=== PATIENT | male | born 1950 | race Caucasian/White ===

== ENCOUNTER → 2017-12-23 | Outpatient (CLI) | payer MEDICARE, OTHER ==
[~2017-12-23] MED LIST: ACYCLOVIR 400400 MG PO; AMITRIPTYLINE H25 M2 PO; LIPITOR 20 MG T20 M1 PO; XALATAN2.5 ML OPHTHALMIC
--- NOTE | 2018-01-02 00:54 | ONC ---
[place] [address] RADIATION ONCOLOGY NOTE Name: LESLIE TRINIDAD Room: [facility]#: [id number] Admission: 12/23/17 Attend Phys: Vic Giraldo MD Discharge: Date of : 52 Report #: [id number] THIS REPORT FOR: //name// CC: Vic Horan MD REFERRING PHYSICIANS: Mague Guerrero MD; Ghanshyam Zuleta MD and Shantal Horan MD [facility] phone is [phone]. PRIMARY SITE AND HISTOPATHOLOGY: The patient received chemoradiotherapy for a stage III, T2 N1a M0, left buccal mucosal cancer and the patient's radiation therapy was completed on 05/26/2016. INTERVAL NOTE: The patient is eating well. He is eating foods such as steaks, ham, mashed potatoes. He indicated that he had an electromyelogram for neuropathy symptoms in the left arm, though he feels like that his symptoms are pretty minimal at this time. MEDICATIONS: Atorvastatin and amitriptyline. He had been prescribed PreviDent gel, but he has not been completely compliant with using it. 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 Cigarettes: He smoked cigars off and on for about 20 years. He quit smoking around 2005. REVIEW OF SYSTEMS: RESPIRATORY: The patient was not short of breath. MUSCULOSKELETAL: He had good range of motion in his upper extremities. PHYSICAL EXAMINATION: VITAL SIGNS: The patient weighed 150.8 pounds on 12/23/2017. He was 142.8 pounds on 06/17/2017. On 12/23/2017, blood pressure was 133/80, pulse 77, respirations 20, oxygen saturation 100%. LYMPH NODES: He had no palpable cervical or supraclavicular lymphadenopathy. HEAD, EYES, EARS, NOSE AND THROAT: Mouth had no suspicious visible lesions or suspicious palpable lesions. His dentition appeared in good condition. HEART: Had a regular rate and rhythm without murmur. LUNGS: were clear to auscultation. LABORATORY DATA: From 12/16/2017: Hemoglobin was 13.1; platelets were 172,000; white blood cell count was 6.8. Sodium was 135, potassium was 4.2, BUN 15, creatinine 1.13. TSH was 2.50. RADIOLOGIC DATA: From 09/14/2017 revealed post-therapeutic [place] [address] RADIATION ONCOLOGY NOTE Name: LESLIE TRINIDAD Room: [facility]#: [id number] Admission: 12/23/17 Attend Phys: Vic Giraldo MD Discharge: Date of : 52 Report #: [id number] No evidence of thoracic metastatic disease. Extensive calcified coronary artery disease. ASSESSMENT: 1. History of head and neck cancer- There is no evidence of head and neck cancer at this time. The patient is scheduled to have lab work and a CT scan of the neck and chest by his medical oncologist, Dr. Horan, on 03/12/2018. He has an appointment with Dr. Horan on 03/16/2018. I gave the patient a requisition for a complete blood count, basic metabolic panel, TSH level in 07/2018. He was asked to schedule a follow up appointment to see me afterwards. 2. Dental care- The patient indicated that he had plenty of 1.1% PreviDent fluoride at home. He was encouraged to use it and followup regularly with his dentist. 3. Calcified coronary artery disease- The patient will be referred to his primary care physician, Dr. Guerrero, to manage this issue. 4. Hyperlipidemia- The patient takes atorvastatin and that is managed by his referring physicians. Thank you for allowing me to participate in the care of this patient. <ELECTRONICALLY SIGNED> By: Vic Giraldo MD 01/02/18 0054 1120 0023Dtwan Giraldo MD /nt
== END ==
LOC: M.RTH 04:01
DX: Z08 Encounter for follow-up examination after completed treatment for malignant neoplasm (principal); I25.10 Atherosclerotic heart disease of native coronary artery without angina pectoris; E78.5 Hyperlipidemia, unspecified

== ENCOUNTER → 2018-07-21 | Outpatient (CLI) | payer MEDICARE, OTHER ==
--- NOTE | 2018-07-26 14:42 | ONC ---
[address] [address] RADIATION ONCOLOGY NOTE Name: LESLIE TRINIDAD Room: [facility]#: [id number] Admission: 07/21/18 Attend Phys: Vic Giraldo MD Discharge: Date of : 52 Report #: [id number] THIS REPORT FOR: //name// CC: Vic Sawyer DATE OF SERVICE: 07/21/2018 REFERRING PHYSICIANS: Mague Guerrero MD; Shantal Horan MD; Ghanshyam Zuleta MD and Dr. Sawyer. [facility] phone is [phone]. PRIMARY SITE AND HISTOPATHOLOGY: The patient received chemoradiotherapy for a stage III, X9T1dY2, left buccal mucosal cancer. The patient's radiation therapy was completed on 05/26/2016. INTERVAL NOTE: The patient indicated that he had a neck CT around 06/23/2018, which revealed some prominence in the left buccal mucosa and that that was biopsied. The biopsy revealed benign findings. 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 That area is very sensitive for the patient, though overall he is eating well and he does use his fluoride gel. MEDICATIONS: Atorvastatin, amitriptyline. He is completing an antibiotic. He takes Advil as needed for pain control. 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 Cigarettes: he smoked cigars off and on for about 20 years. He quit smoking around 2005. REVIEW OF SYSTEMS: RESPIRATORY: The patient was not short of breath. MUSCULOSKELETAL: He had good range of motion of his upper extremities. PHYSICAL EXAMINATION: VITAL SIGNS: The patient weighed 152.4 pounds on 07/21/2018, 150.8 pounds on 12/23/2017. On 07/21/2018 blood pressure was 118/82, pulse 78, respirations 18, oxygen saturation 97%. LYMPH NODES: He had no palpable cervical or supraclavicular lymphadenopathy. HEAD, EYES, EARS, NOSE AND THROAT: Mouth had no suspicious visible lesions or suspicious palpable lesions. The area where he had his biopsy has a healing ulcer. HEART: Had a regular rate [place] [address] RADIATION ONCOLOGY NOTE Name: LESLIE TRINIDAD Room: [facility]#: [id number] Admission: 07/21/18 Attend Phys: Vic Giraldo MD Discharge: Date of : 52 Report #: [id number] LUNGS: were clear to auscultation. LABORATORY DATA: From 07/15/2018, hemoglobin was 13, platelets were 188,000, white blood cells were 7.0. Sodium 138, potassium 3.9, BUN was 18, creatinine 1.16. TSH was 3.28. The patient had a neck CT performed on 06/23/2018, which revealed focal thickening, prominence of the left buccal mucosa, lower buccal mucosa, which could be post radiation changes, but recurrent residual neoplastic disease could not be excluded. He had a focal radiolucency of the left mandibular molar extraction area. The cavity, which had progressed compared to 02/05/2016 could be radiation-induced osteonecrosis. He had a biopsy of the noted area of the left buccal mucosa by the oral surgeon, Dr. Sawyer, that was sent to [facility] for pathologic evaluation on 06/24/2018. The pathology revealed focal and granulation tissue with fibrosis and some hyperkeratosis with ulcer and atypia, with no obvious malignancy, and the patient had been put on antibiotics. ASSESSMENT AND PLAN: 1. History of head and neck cancer- There is no obvious evidence of head and neck cancer at this time. The patient is scheduled to see his medical oncologist, Dr. Horan, on 09/29/2018. Prior to that time he is scheduled for a neck and chest CT on 09/27/2018 and has lab work scheduled for 09/29/2018. I will give the patient a requisition for lab work in about 4-6 months and I asked the patient to schedule a follow up appointment with me afterwards. 2. Ulcer, where the patient had a biopsy with possible osteonecrosis- The patient will be referred to [facility] to be assessed for possible hyperbaric oxygen therapy for this area. 3. Dental care- The patient was given a prescription for both PreviDent gel and PreviDent paste for sensitive teeth. 4. Hyperlipidemia- The patient takes atorvastatin and that is managed by his referring physicians. Thank you for allowing me to participate in the care of this patient. <ELECTRONICALLY SIGNED> By: Vic Giraldo MD 07/26/18 1442 1105 [id number] Giraldo MD /nt
== END ==
LOC: M.RTH 09:30
DX: E78.5 Hyperlipidemia, unspecified (principal); L98.499 Non-pressure chronic ulcer of skin of other sites with unspecified severity; Z85.89 Personal history of malignant neoplasm of other organs and systems

== ENCOUNTER → 2018-07-29 | Outpatient (CLI) | payer MEDICARE, OTHER | LOC: M.WC 10:00 | DX: M27.2 Inflammatory conditions of jaws (principal); L59.8 Other specified disorders of the skin and subcutaneous tissue related to radiation; Z87.891 Personal history of nicotine dependence; Z85.89 Personal history of malignant neoplasm of other organs and systems; Y84.2 Radiological procedure and radiotherapy as the cause of abnormal reaction of the patient, or of later complication, without mention of misadventure at the time of the procedure ==

== ENCOUNTER → 2018-08-03 | Outpatient (CLI) | payer MEDICARE, OTHER | LOC: M.WC 08:00 | DX: M27.2 Inflammatory conditions of jaws (principal); L59.8 Other specified disorders of the skin and subcutaneous tissue related to radiation; H91.90 Unspecified hearing loss, unspecified ear; Z87.891 Personal history of nicotine dependence; Z85.89 Personal history of malignant neoplasm of other organs and systems; Y84.2 Radiological procedure and radiotherapy as the cause of abnormal reaction of the patient, or of later complication, without mention of misadventure at the time of the procedure ==

== ENCOUNTER → 2018-08-13 | Outpatient (CLI) | payer MEDICARE, OTHER | LOC: M.WC 09:43 | DX: M27.2 Inflammatory conditions of jaws (principal); L59.8 Other specified disorders of the skin and subcutaneous tissue related to radiation; H91.90 Unspecified hearing loss, unspecified ear; Z87.891 Personal history of nicotine dependence; Z85.89 Personal history of malignant neoplasm of other organs and systems; Z85.818 Personal history of malignant neoplasm of other sites of lip, oral cavity, and pharynx; Y84.2 Radiological procedure and radiotherapy as the cause of abnormal reaction of the patient, or of later complication, without mention of misadventure at the time of the procedure ==

== ENCOUNTER → 2018-09-10 | Outpatient (CLI) | payer MEDICARE, OTHER | LOC: M.WC 09:30 | DX: M27.8 Other specified diseases of jaws (principal); L59.8 Other specified disorders of the skin and subcutaneous tissue related to radiation; H91.90 Unspecified hearing loss, unspecified ear; Z87.891 Personal history of nicotine dependence; Z85.89 Personal history of malignant neoplasm of other organs and systems; Y84.2 Radiological procedure and radiotherapy as the cause of abnormal reaction of the patient, or of later complication, without mention of misadventure at the time of the procedure ==

== ENCOUNTER → 2018-09-23 | Outpatient (CLI) | payer MEDICARE, OTHER | LOC: M.WC 04:45 | DX: M27.2 Inflammatory conditions of jaws (principal); L59.8 Other specified disorders of the skin and subcutaneous tissue related to radiation; H91.90 Unspecified hearing loss, unspecified ear; Z87.891 Personal history of nicotine dependence; Z85.89 Personal history of malignant neoplasm of other organs and systems; Y84.2 Radiological procedure and radiotherapy as the cause of abnormal reaction of the patient, or of later complication, without mention of misadventure at the time of the procedure ==

== ENCOUNTER → 2018-10-22 | Outpatient (CLI) | payer MEDICARE, OTHER | LOC: M.WC 07:00 | DX: M27.2 Inflammatory conditions of jaws (principal); L59.8 Other specified disorders of the skin and subcutaneous tissue related to radiation; H40.9 Unspecified glaucoma; H91.90 Unspecified hearing loss, unspecified ear; Z87.891 Personal history of nicotine dependence; Z85.89 Personal history of malignant neoplasm of other organs and systems; Y84.2 Radiological procedure and radiotherapy as the cause of abnormal reaction of the patient, or of later complication, without mention of misadventure at the time of the procedure ==

== ENCOUNTER → 2019-01-28 | Outpatient (CLI) | payer MEDICARE, OTHER ==
--- NOTE | 2019-01-31 01:03 | ONC ---
[place] [address] RADIATION ONCOLOGY NOTE Name: LESLIE TRINIDAD Room: [facility]#: [id number] Admission: 01/28/19 Attend Phys: Vic Giraldo MD Discharge: Date of : 52 Report #: [id number] THIS REPORT FOR: //name// CC: Vic Sawyer MD DATE OF SERVICE: 01/28/2019 RADIATION ONCOLOGY FOLLOWUP NOTE REFERRING PHYSICIANS: Mague Guerrero MD., Shantal Horan MD., Bronson Hirsch MD., and Joseph Sawyer MD. [facility] phone is [phone]. PRIMARY SITE AND HISTOPATHOLOGY: The patient received chemoradiotherapy for a stage III, T2 N1a M0, left buccal mucosal cancer. The patient's radiation therapy was completed on 05/26/2016. INTERVAL NOTE: The patient had hyperbaric oxygen treatments for a nonhealing ulcer on the left mandible. He also had a CT scan of the neck on 01/12/2019 which revealed no evidence of any residual or recurrent mass or cervical lymphadenopathy, but there was a focal linear gas density along the lateral left mandibular body, which was probably corresponding to the area of exposed bone. Clinically, there was no aggressive osteolysis. The patient ended up seeing the ear, nose, throat physician, Dr. Hirsch on 12/22/2018 and he believed the patient had osteonecrosis of the left mandible and scheduled him for surgery on 02/15/2019. The patient indicated that he had wisdom teeth extracted in that area in the past. He also had a biopsy of an area there on 06/24/2018 by the oral surgeon, Dr. Sawyer that revealed benign findings, so ultimately a nonhealing area developed. He tends to eat food on the right side since he does have pain when eating on the left side of his mouth. He has not been totally compliant with using his fluoride gel at this time. MEDICATIONS: Atorvastatin, amitriptyline, Advil as needed and Augmentin x 10 days. 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 Cigarettes, he smoked cigars off and on for about 20 years. He quit smoking around 2005. REVIEW OF SYSTEMS: RESPIRATORY: The patient was not short of breath. MUSCULOSKELETAL: He has good range of motion [place] [address] RADIATION ONCOLOGY NOTE Name: LESLIE TRINIDAD Room: [facility]#: [id number] Admission: 01/28/19 Attend Phys: Vic Giraldo MD Discharge: Date of : 52 Report #: [id number] PHYSICAL EXAMINATION: VITAL SIGNS: The patient weighed 147 pounds on 01/28/2019, 152.4 pounds on 07/21/2018. On 01/28/2019, blood pressure was 113/75, pulse 82, respirations 20, oxygen saturation 98%. LYMPH NODES: He had no palpable cervical or supraclavicular lymphadenopathy. HEAD, EYES, EARS, NOSE AND THROAT: Mouth had no suspicious visible lesions or suspicious palpable lesions. He did have a nonhealing area around the left mandible near the posterior molars on the buccal side. HEART: Had a regular rate and rhythm without murmur. LUNGS: were clear to auscultation. LABORATORY DATA: From 01/14/2019, hemoglobin was 13.0, platelets 189,000, white blood cells 7.0. Sodium 136, potassium 3.5, BUN 13, creatinine 1.10 and TSH was 3.3. ASSESSMENT AND PLAN: 1. History of head and neck cancer- There is no obvious head and neck cancer at this time. The patient was given a requisition for lab work around 05/2019 or 06/2019. He was asked to schedule a followup appointment to see me afterwards. 2. 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 Hirsch on 02/15/2019. Lab work was ordered in 05/2019 or 06/2019. The patient was asked to schedule a followup appointment to see me afterwards. He also has an appointment with his medical oncologist, Dr. Hroan on 04/06/2019. 3. Dental care- The patient was given a prescription for Dentogel and he was told to apply that to his teeth. 4. Hyperlipidemia- The patient takes atorvastatin that is managed by his referring physicians. Thank you for allowing me to participate in the care of this patient. <ELECTRONICALLY SIGNED> By: Vic Giraldo MD 01/31/19 0103 1436 0002Vic Giraldo MD /dixie
== END ==
LOC: M.RTH 05:35
DX: C06.0 Malignant neoplasm of cheek mucosa (principal); E78.5 Hyperlipidemia, unspecified; Z79.899 Other long term (current) drug therapy

== ENCOUNTER → 2019-07-08 | Outpatient (CLI) | payer MEDICARE, OTHER ==
--- NOTE | ~2019-07-08 | ONC ---
[address] [address] RADIATION ONCOLOGY NOTE Name: LESLIE TRINIDAD Room: [facility]#: [id number] Admission: 07/08/19 Attend Phys: Vic Giraldo MD Discharge: Date of : 52 Report #: [id number] THIS REPORT FOR: //name// CC: Vic Guerrero DATE OF SERVICE: 07/08/2019 RADIATION/ONCOLOGY FOLLOWUP NOTE REFERRING PHYSICIANS: Mague Guerrero MD; Shantal Horan MD; Bronson Hirsch MD; Joseph Sawyer MD [facility] phone is [phone]. PRIMARY SITE AND HISTOPATHOLOGY: The patient received chemoradiotherapy for stage 3 T2 N1a M0 left buccal mucosal cancer. The patient's radiation therapy was completed on 05/26/2016. 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 He has been able to eat TV dinners and other soft foods. MEDICATIONS: Include atorvastatin, amitriptyline, Advil as needed. 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 Cigarettes, he smoked cigars off and on for about 20 years. He quit smoking around 2005. REVIEW OF SYSTEMS: RESPIRATORY: The patient was not short of breath. MUSCULOSKELETAL: He had good range of motion of his upper extremities. PHYSICAL EXAMINATION: VITAL SIGNS: The patient weighed 147.4 pounds on 07/08/2019 and 147 pounds on 01/28/2019. On 07/08/2019, blood pressure is 105/68, pulse 78, respirations 18, oxygen saturation 98%. LYMPH NODES: The patient had no palpable cervical or supraclavicular lymphadenopathy. HEAD, EYES, EARS, NOSE AND THROAT: Mouth had no suspicious visible lesions or suspicious palpable lesions. The area where he had the operation looks well healed. HEART: Had a regular rate and rhythm without murmur. LUNGS: Clear to auscultation. LABORATORY DATA: From 06/20/2019, hemoglobin 13, platelets 201,000, [place] [address] RADIATION ONCOLOGY NOTE Name: LESLIE TRINIDAD Room: [facility]#: [id number] Admission: 07/08/19 Attend Phys: Vic Giraldo MD Discharge: Date of : 52 Report #: [id number] cell count was 7.6. Sodium 138, potassium 4.3, BUN was 22, creatinine 1.14 and his TSH was slightly elevated at 6.74 with free T4 of 0.7. RADIOLOGIC DATA: He had a neck and chest CT on 04/04/2019. The chest CT showed no evidence of thoracic metastatic disease and his neck CT revealed the postoperative findings consistent with interval left segmental mandibulectomy with an osteocutaneous flap and hardware reconstruction, which was consistent with a postoperative seroma and saw just post-treatment changes. There was no cervical lymphadenopathy. ASSESSMENT AND PLAN: 1. History of head and neck cancer. There is no evidence of head and neck cancer at this time. The patient is scheduled to see his medical oncologist, Dr. Horan, on 10/06/2019. Dr. Horan ordered lab work as well as a neck and chest CT to be done on 10/04/2019 with a followup on 10/06/2019. 2. Hypothyroidism -- the patient was prescribed 25 mcg of levothyroxine to take per day and a TSH was ordered around 12/2019, the patient was asked to follow up with me afterwards. A complete blood count, basic metabolic panel were also ordered around 12/2019 and the patient was asked to follow up with me afterwards. 3. Dental care. The patient was given a prescription for PreviDent 1.1% fluoride paste to use for dental care. 4. Hyperlipidemia. The patient takes atorvastatin that is managed by his referring physicians. Thank you for allowing me to participate in the care of this patient. By: [id number] [id number] Giraldo MD /dixie
== END ==
LOC: M.RTH 07-01 09:45
DX: Z08 Encounter for follow-up examination after completed treatment for malignant neoplasm (principal); E03.9 Hypothyroidism, unspecified; E78.5 Hyperlipidemia, unspecified; Z85.89 Personal history of malignant neoplasm of other organs and systems

== ENCOUNTER → 2019-12-16 | Outpatient (CLI) | payer MEDICARE, OTHER ==
--- NOTE | 2019-12-20 13:36 | ONC ---
[place] [address] RADIATION ONCOLOGY NOTE Name: LESLIE TRINIDAD Room: [facility]#: [id number] Admission: 12/16/19 Attend Phys: Vic Giraldo MD Discharge: Date of : 52 Report #: [id number] THIS REPORT FOR: //name// CC: Vic Sawyer DATE OF SERVICE: 12/16/2019 RADIATION ONCOLOGY FOLLOWUP NOTE REFERRING PHYSICIANS: Mague Guerrero MD, Shantal Horan MD, Bronson Hirsch MD, and Joseph Sawyer MD. [facility] phone is [phone]. PRIMARY SITE AND HISTOPATHOLOGY: The patient received chemoradiotherapy for a stage III, T2 N1a M0, left buccal mucosal cancer. The patient's radiation therapy was completed on 05/26/2016. 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 He has actually gained weight. He has been eating soft foods like TV dinners. MEDICATIONS: Atorvastatin, amitriptyline, Advil as needed. He also takes 25 mcg of levothyroxine per day as well as PreviDent fluoride paste. He indicated that he has not always been compliant with taking his levothyroxine daily. 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 Cigarettes, he smoked cigars off and on for about 20 years. He quit smoking around 2005. REVIEW OF SYSTEMS: RESPIRATORY: The patient was not short of breath. MUSCULOSKELETAL: He has good range of motion of his upper extremities. PHYSICAL EXAMINATION: VITAL SIGNS: The patient weighed 151.4 pounds on 12/16/2019. He was 147.4 pounds on 07/08/2019. On 12/16/2019, temperature was 97.7 degrees Fahrenheit, blood pressure was 116/72, pulse 74, oxygen saturation 95%, respirations 18. LYMPH NODES: The patient had no palpable cervical or supraclavicular lymphadenopathy. EYES, EARS, NOSE AND THROAT Mouth had no suspicious visible lesions [place] [address] RADIATION ONCOLOGY NOTE Name: LESLIE TRINIDAD Room: [facility]#: [id number] Admission: 12/16/19 Attend Phys: Vic Giraldo MD Discharge: Date of : 52 Report #: [id number] HEART: Had a regular rate and rhythm without murmur. LUNGS: were clear to auscultation. LABORATORY DATA: From 12/09/2019; hemoglobin was 13.3, platelets 153,000, white blood cell count was 5.7. Sodium was 140, potassium was 3.9, BUN was 17 and creatinine was 1.16. TSH was elevated at 5.82 though it was less than what it was on 06/20/2019 when it was 6.74. RADIOLOGIC DATA: The patient had a neck CT on 12/16/2019 and that revealed the evidence of a prior left segmental mandibulectomy. There was no evidence of recurrent mass. They did see a mild lucency at the left anterior mandibular fixation side, which was suspected for loosening in that area of the fixation hardware and there was no cervical lymphadenopathy. ASSESSMENT AND PLAN: 1. History of head and neck cancer- There is no evidence of head and neck cancer at this time. So, the patient has a CT scheduled with his medical oncologist, Dr. Horan on 04/09/2020 and he has an appointment with his medical oncologist on 04/11/2020. I went ahead and ordered a basic metabolic panel and complete blood count in about 6 months and I asked the patient to follow up with me afterwards. 2. Hypothyroidism- The patient's TSH is slightly elevated, though improving with 25 mcg of levothyroxine per day as prescribed for the patient, the TSH is still elevated probably because he is not completely compliant with taking it daily. He said he will try to be more compliant with taking it daily so I kept him on the 25 mcg of levothyroxine per day and gave him a refill and ordered a TSH in about 6 months and I asked the patient to follow up with me afterwards. 3. Hardware loosening around the mandible- The patient was referred to his Ear, Nose and Throat physician, Dr. Hirsch to evaluate that area and manage that issue. 4. Dental care.- The patient was given a refill for PreviDent 1.1% fluoride paste to use for dental care. He applies it with a tooth brush. 5. Hyperlipidemia- The patient takes atorvastatin and is managed by his referring physicians. Again, thank you for allowing me to participate in the care of this patient. <ELECTRONICALLY SIGNED> By: Vic Giraldo MD 12/20/19 1336 1427 1603Dtwan Giraldo MD /nt
== END ==
LOC: M.RTH 05:18
PROVIDERS: ATTEND Radiology Radiation Oncology
DX: Z85.818 Personal history of malignant neoplasm of other sites of lip, oral cavity, and pharynx (principal); Z87.891 Personal history of nicotine dependence; Z79.899 Other long term (current) drug therapy

== ENCOUNTER → 2020-07-27 | Outpatient (CLI) | payer MEDICARE, OTHER ==
--- NOTE | ~2020-07-27 | ONC ---
[place] [address] RADIATION ONCOLOGY NOTE Name: LESLIE TRINIDAD Room: [facility]#: [id number] Admission: 07/27/20 Attend Phys: Vic Giraldo MD Discharge: Date of : 52 Report #: [id number] THIS REPORT FOR: cc: Mague Guerrero MD, Katrina MD ~ Vic iGraldo MD DATE OF SERVICE: 07/27/2020 RADIATION ONCOLOGY FOLLOWUP NOTE REFERRING PHYSICIANS: Mague Guerrero MD; Shantal Horan MD; Bronson Hirsch MD; Dr. Joseph Sawyer. [facility] phone is [phone]. PRIMARY SITE AND HISTOPATHOLOGY: Patient received chemoradiotherapy for stage 3, C3D5vV4 left buccal mucosal cancer. The patient's radiation therapy was completed on 05/26/2016. 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 According to the patient, Dr. Hirsch is going to perform a procedure on some of the screws in that graft, but he delayed it since the patient ended up having what sounds like a shoulder replacement surgery recently, so Dr. Hirsch ordered lab work and a scan and a followup in 10/2020. The patient has been eating soft foods such as TV dinners. MEDICATIONS: Includes atorvastatin; amitriptyline; Advil as needed; 25 mcg of levothyroxine per day, though he says he sometimes forgets to take the levothyroxine; and PreviDent fluoride paste. 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 Cigarettes, he smoked cigars off and on for about 20 years. He quit smoking cigars around 2005. REVIEW OF SYSTEMS: RESPIRATORY: The patient was not short of breath. MUSCULOSKELETAL: He had good range of motion of his upper extremities. PHYSICAL EXAMINATION: VITAL SIGNS: The patient weighed 155.8 pounds on 07/27/2020 and a 157.4 pounds on 12/24/2019. On 07/27/2020, blood pressure is 131/76, pulse 68, respirations 16, temperature 97.6 degrees Fahrenheit. Oxygen saturation was 98% on room air. LYMPH NODES: The patient had no palpable cervical or supraclavicular lymphadenopathy. HEAD, EYES, EARS, NOSE, AND THROAT: Mouth [place] [address] RADIATION ONCOLOGY NOTE Name: LESLIE TRINIDAD Room: [facility]#: [id number] Admission: 07/27/20 Attend Phys: iVc Giraldo MD Discharge: Date of : 52 Report #: [id number] suspicious palpable lesions, though he does have mild lymphedema in the right cheek area. HEART: Had a regular rate and rhythm without murmur. LUNGS: Clear to auscultation. LABORATORY DATA: [facility] on 07/16/2020, hemoglobin 12.1; platelets 200,000; white blood cell count 6.9. Sodium 139, potassium 3.9, BUN 17, creatinine 1.04. AST 22, ALT 12 and TSH was 3.26 with the patient taking 25 mcg of levothyroxine per day. RADIOLOGIC DATA: The patient did have a neck CT on 04/09/2020, which showed no recurrent soft tissue, neck mass, or lymphadenopathy. He did have findings consistent with loosening of some of the screws in the left mandibular area. ASSESSMENT AND PLAN: 1. History of head and neck cancer. There is no evidence of head and neck cancer at this time. Lab work was ordered in about 6 months and the patient was asked to schedule a followup appointment to see me afterwards. 2. Hypothyroidism. The patient's TSH is within normal limits with him taking 25 mcg of levothyroxine per day. He was given a refill for 25 mcg of levothyroxine per day. TSH was ordered in about 6 months and the patient was asked to follow up with me afterwards. 3. Possible hardware loosening around the mandible. The patient said that Dr. Hirsch deferred operating on that area at this time since he had what sounds like a left shoulder replacement, so it sounds like he has lab work and a scan and appointment with Dr. Hirsch in 10/2020. 4. Dental care. The patient was given a refill for PreviDent 1.1% fluoride paste to use for dental care. 5. Hyperlipidemia. The patient takes atorvastatin that is managed by his referring physicians. Thank you for allowing me to participate in the care of this patient. By: [id number] Giraldo MD /dixie
== END ==
LOC: M.RTH 07-20 10:30
PROVIDERS: ATTEND Radiology Radiation Oncology
DX: Z85.818 Personal history of malignant neoplasm of other sites of lip, oral cavity, and pharynx (principal); Z92.21 Personal history of antineoplastic chemotherapy